=== PATIENT | female | born 1960 | race Caucasian/White ===

== ENCOUNTER → 2023-09-24 | Outpatient (CLI) | payer BC, SELFPAY ==
--- NOTE | 2023-09-24 | FLU_PTH ---
PATIENT: JANA MONTANA LOC: [facility]#:[id number] AGE/SX: 63/F ROOM: RE09/24/[address]: Dr. Dmitri Tan MD : 1960 BED: DIS: 09/24/2023 SPEC #: [id number] RECD: 09/24/23 12:38 STATUS: CRISTY YADI #: [id number] BERTA: 09/24/23 00:[address]: Dmitri Tan DEPT: CYTOLOGY RECD BY: Ike Garcia ENTERED: 09/24/23 12:39 SP TYPE: Fluid OTHR DR: Dr. Сергей Vargas MD Tissues: A - Thyroid gland, NOS B - Thyroid gland, NOS C - Thyroid gland, NOS D - Thyroid gland, NOS E - Thyroid gland, NOS Procedures: Special Stain Group II Surgery Specimen Level IV Cytospin Fluid HEADER OPERATION: Fine needle aspiration of thyroid nodules PRE-OP DIAGNOSIS: Right thyroid nodule TISSUE SUBMITTED: A- Right superior thyroid nodule fluid, B- Right superior thyroid nodule, smears. C- Right inferior thyroid nodule fluid, D- Right inferior thyroid nodule, smears, E- Superior thyroid nodule fluid DIAGNOSIS CYTOLOGY A. Right upper thyroid nodule fluid, fine needle aspiration (cytospin and cellblock): Consistent with benign follicular/ colloid nodule, Felicity Category II. Adequate for evaluation. B. Right superior thyroid nodule, fine needle aspiration (smears): Consistent with benign follicular/ colloid nodule Felicity Category II. Adequate for evaluation. C. Right lower thyroid nodule fluid, fine needle aspiration (cytospin and cellblock): Negative for malignant cells. See comment. D. Right inferior thyroid nodule, fine needle aspiration (smears): Consistent with benign follicular/ colloid nodule, Felicity Category II. Adequate for evaluation. E. Superior thyroid nodule fluid, fine needle aspiration (cytospin and cellblock): Consistent of cyst contents. Non diagnostic specimen, Felicity Category I. See comment. ADITI/ 09/25/2023 COMMENT C. This specimen consists of rare follicular cells and scant colloid. E. This specimen predominantly consists of macrophages, scant colloid and a few benign follicular cells. Correlation with clinical, radiologic findings and appropriate follow up are necessary. The Felicity System for thyroid diagnostic categorization was used in the evaluation of this case. CYTOLOGY STUDY Slides are reviewed. CYTOLOGY GROSS A. Received is 10 ml of red cloudy fluid labeled with the patient's name and and designated per the requisition as Right superior thyroid nodule fluid. Submitted for cytology preparation including cell block. B. Received are 4 smears labeled with the patient's name and designated per the requisition as Right superior thyroid nodule. Submitted for staining. C. Received is 20 ml of red-cloudy fluid labeled with the patient's name and and designated per the requisition as right inferior thyroid fluid. Submitted for cytology preparation including cell block. D. Received are 4 smears labeled with the patient's name and designated per the requisition as right inferior thyroid nodule. Submitted for staining. E. Received is 2 ml of dark red cloudy fluid labeled with the patient's name and and designated per the requisition as Superior thyroid fluid. Submitted for cytology preparation including cell block. mr 09/24/23 TC:5 CPT: 73707s3,52942d3
[2023-09-24 10:30] LABS: PTHIN 31.8 pg/mL (18.4-80.1)
[2023-09-24 10:39] LABS: Calcium,Total 9.9 mg/dL (8.5-10.1); Free T3 3.1 pg/mL (2.18-3.98); T4 Free Direct 0.86 ng/dL (0.76-1.46); Thyroid Stim Hormone (TSH) 0.64 uIU/mL (0.358-3.74)
== END | disposition home or self-care (01) ==
PROVIDERS: PCP Family Medicine; Referring Provider Surgery; Visit Provider Surgery
DX: E04.1 Nontoxic single thyroid nodule (principal)
CPT/HCPCS: 36415; 82310; 83970; 84439; 84443; 84481; 88108; 88305; 88313

== ENCOUNTER → 2025-05-24 | Outpatient (CLI) | payer BC, SELFPAY ==
--- NOTE | 2025-05-24 15:48 | CT_ITS ---
PROCEDURE: SOFT TISSUE NECK WITH CONTRAST 05/24/2025 REASON FOR EXAM: Clinical history are dyspnea TECHNIQUE: Procedure Code: CTNEW Modality: CT Procedure: SOFT TISSUE NECK WITH CONTRAST CONTRAST: Contrast dosage information not provided at the time of review. One or more dose reduction techniques were used (e.g., Automated exposure control, adjustment of the mA and/or kV according to patient size, use of iterative reconstruction technique). RADIATION DOSE SUMMARY: DLP: 498.46 mGycm COMPARISON: None available. Correlation with thyroid ultrasound 09/11/2024. FINDINGS: Aerodigestive tract: The floor of mouth, base of tongue, nasopharynx, oropharynx, hypopharynx, and larynx appear overall symmetric without evidence of nodular or masslike enhancement. The visualized trachea is clear. The nasal cavity is unobstructed. Salivary glands: (Major): The submandibular glands and parotid glands appear within normal limits. Thyroid gland: Multinodular right thyroid gland better characterized on prior thyroid ultrasound. Lymph nodes: There is no evidence of pathologic cervical lymphadenopathy. Vasculature: The common carotid, cervical internal carotid, and cervical vertebral arteries opacify with intravenously administered contrast. Paranasal sinuses: The paranasal sinuses are predominantly clear. Orbits: Unremarkable. Intracranial/cranium: The partially visualized intracranial contents appear overall within normal limits for the patient's stated age, although assessment is limited due to technique (e.g. the [id number]). Cervical spine: Malsegmentation of C5-C7 vertebral bodies. Lung apices: The visualized lung apices are predominantly clear. CT/Soft Tissue Neck WITH Contrast IMPRESSION: 1. No dominant neck mass or pathologic cervical lymphadenopathy. 2. Multinodular right thyroid gland better characterized on prior thyroid ultra sound. 3. Malsegmentation of C5-C7 vertebral bodies. Reading Location: [id number]
== END | disposition home or self-care (01) ==
PROVIDERS: Referring Provider Internal Medicine Pulmonary Disease; Visit Provider Internal Medicine Pulmonary Disease
DX: R06.00 Dyspnea, unspecified (principal)
CPT/HCPCS: 70491; Q9967